=== PATIENT | male | born 1980 | race Caucasian/White ===

== ENCOUNTER 2018-04-18 04:07 | Emergency (ER) | payer OTHER ==
[~2018-04-18] VITALS: Ht 165.1 cm; Wt 59.0 kg
[2018-04-18] MEDS ORDERED: ZOLOFT25 MG (04:17)
[2018-04-18] MEDS ORDERED: CEFUROXIME500 MG PO (05:15)
[2018-04-18] MEDS ORDERED: KETO10TA2 PO (05:15)
[2018-04-18] MEDS ORDERED: ORASEP SPRAY30 ML PO ×2 (05:16→05:17)
== END 2018-04-18 05:30 | disposition home or self-care (01) ==
LOC: ER 04:07
DX: J03.80 Acute tonsillitis due to other specified organisms (principal)